=== PATIENT | female | born 1980 | race Caucasian/White ===

== ENCOUNTER 2017-11-10 15:32 | Outpatient (REF) | payer MEDICAID, SELFPAY ==
[2017-11-10 19:27] LABS: HCT 37.2 % (36.0-46.0); HGB 11.9 g/dL (12.0-15.5); Mean Corpuscular Hemoglobin 31.8 pg (27.0-33.0); Mean Corpuscular Volume 99.5 fL (80-95); Mean Platelet Volume 11.2 fL (8.0-11.0); Platelet Count 533 x1000/uL (130-400); RBC 3.74 m/cumm (4.00-5.20); RBC Distribution Width 20.2 % (11.7-14.6); White Blood Cell Count 10.77 k/cumm (4.4-10.8)
[2017-11-10 19:41] LABS: ALT 16 U/L (12-78); AST 20 U/L (15-37); Albumin 3.7 g/dL (3.4-5.0); Alkaline Phosphatase 108 U/L (46-116); BUN 12 mg/dL (7-18); Bilirubin, Total 0.2 mg/dL (0.2-1.0); C-Reactive Protein 0.36 mg/dL (0.0-0.3); CREATININE 0.56 mg/dL (0.55-1.02); Calcium 9.4 mg/dL (8.5-10.1); Chloride 103 mmol/L (98-107); Glucose 84 mg/dL (70-100); Magnesium 1.8 mg/dL (1.8-2.4); Potassium 4.8 mmol/L (3.5-5.1); Sodium 140 mmol/L (136-145); Total Protein 7.4 g/dL (6.4-8.2)
[2017-11-10 20:14] LABS: Iron 100 ug/dL (50-175); Total Iron Binding Capacity 256 ug/dL (250-450); Transferrin Sat 39 % (15-50)
[2017-11-10 20:41] LABS: Vitamin B12 768 pg/mL (193-986)
[2017-11-12 09:39] LABS: HBs Antibody, Quant 3.6 mIU/mL; Hepatitis B Surface Ab Negative
[2017-11-12 10:27] LABS: Cyclic Citrullinated Peptide <2.5 U/mL (<5.0)
[2017-11-12 10:55] LABS: Hepatitis B Surface Ag Negative (NEGAT); Hepatitis C Ab w Rflx HCV PCR Negative (NEGAT)
[2017-11-12 10:56] LABS: HIV-1/2 Ag & Ab Screen Negative (NEGAT)
[2017-11-12 13:52] LABS: Syphilis Serology (RPR) Negative (Negative)
== END 2017-11-10 15:52 ==
LOC: NCHCN 15:32
PROVIDERS: PCP Family Medicine; Visit Provider Family Medicine
DX: M12.849 Other specific arthropathies, not elsewhere classified, unspecified hand (principal); E46 Unspecified protein-calorie malnutrition; D64.9 Anemia, unspecified; E87.6 Hypokalemia; F11.20 Opioid dependence, uncomplicated; Z11.4 Encounter for screening for human immunodeficiency virus [HIV]; Z11.59 Encounter for screening for other viral diseases; Z11.3 Encounter for screening for infections with a predominantly sexual mode of transmission
CPT/HCPCS: 80053; 85027; 86200; 86706; 86803; 87340; 87389; 82607; 83540; 83550; 83735; 86140; 86592

== ENCOUNTER 2018-03-31 01:57 | Outpatient (CLI) | payer MEDICAID, SELFPAY | END 2018-03-31 02:17 | PROVIDERS: PCP Family Medicine; Visit Provider Family Medicine | DX: J45.909 Unspecified asthma, uncomplicated (principal) ==

== ENCOUNTER 2018-08-16 15:08 | Emergency (ER) | payer OTHER, SELFPAY ==
[2018-08-16] VITALS (36 sets, daily range): BP systolic 61–132; BP diastolic 20–68; PULSE 84–160; RESP 13–27; TEMP 38.1–38.5; O2SAT 89–98
--- NOTE | 2018-08-16 15:46 | W.ED.GENAD ---
Discharge Plan Disposition Patient Disposition: [facility] Condition: Stable Discharge Details Chief Complaint: Fever Clinical Impression: Pneumonia Primary Care Provider: Roosevelt Darnell ED Provider: Nayan Hawkins Home Meds and New Rx's Prescriptions: New doxycycline hyclate 100 mg tablet 100 mg PO BID Qty: 14 RF: 0 No Action sertraline 100 mg Tablet 200 mg PO DAILY RF: 0 hydroxyzine HCl 50 mg Tablet 50 mg PO BID RF: 0 bupropion HCl 75 mg Tablet 150 mg PO DAILY RF: 0 gabapentin 300 mg Capsule 300 mg PO BID RF: 0 ibuprofen 600 mg Tablet 600 mg PO BID RF: 0 buprenorphine HCl 2 mg Tablet, Sublingual 4 mg SUBLINGUAL DAILY RF: 0 buprenorphine HCl 8 mg Tablet, Sublingual 8 mg SUBLINGUAL DAILY RF: 0 Discharge Instructions Instructions: Pneumonia (ED) Additional Instructions: For your fever and body aches you may take 650 mg of acetaminophen or 600 mg of ibuprofen every 6 hours. Otherwise stay well-hydrated and take antibiotic along with your regular prescribed medications. Return immediately to the emergency department for any new or significant worsening of symptoms or if not improving over the next 24 to 48 hours. Referrals: Roosevelt Darnell [Primary Care Provider] - (As needed for reassessment or if not improving) Discharge Data Discharge Date/Time-TO BE ENTERED AT DEPARTURE: 08/16/18 18:52 Medical Decision Making <LAXMI Bush - Last Filed: 08/17/18 09:39> Patient is a 38 year old female, currently incarcerated, presenting today for evaluation of cough. States she first noted cold like symptoms one week ago with sore throat, congestion, cough. States that the ENT symptoms have been improving but cough has been getting worse. Is endorsing pain with cough and inspiration on the left side of her back. SOB with cough. Endorses fevers/chills. Endorses nausea, no vomting or diarrhea. No recent drug use, currently menstruating. patient report hx of asthma, necrotizing pneumonia, spontaneous pneumothorax, DVT. DVT was during hospitalization last year for pneumonia. Patient is not anticoagulated. On exam, patient appears flushed, fatigued. She is not in respiratory distress. Sounds course in MANJINDER, wheezing noted in RLL. Abdomen is benign. Calves are soft, nontender with no findings to suggest clot. VS concerning for temp of 38.5, patient has received Tylenol today, will augment with ibuprofen. O2 94% on RA, HR 107. Plan to hydrate. Will treat fever, obtain cxr, labs. Concerned primarily for pneumonia. Have also considered PE, sepsis, endocarditis. No anterior CP, no murmur, no recent drug usage. States last used IVD 2 years ago. At the end of my shift, care transitioned to Dago Hawkins NP with workup pending. <Nayan Hawkins NP - Last Filed: 08/16/18 21:11> Review of results show a leukocytosis, anion gap of 13.7, slightly low magnesium. Oral magnesium was given along with additional fluids. Review of radiological imaging and radiologist interpretation shows a hazy opacification in the upper lobe retrosternal region and mild hazy left hilar. These findings are concerning for focal infiltrate. Given patient symptoms of illness for greater than a week and starting to have worsening symptoms I do feel that this is pneumonia. Patient's lactate is within acceptable limits and she is otherwise stable not hypoxic. After patient's fever reduced she did state that she did feel little bit better and after 2 L of fluids she also states improvement. Patient was started on doxycycline twice daily for 1 week. Return precautions were discussed and report was given to correctional staff in regards to patient's condition. After discussion of diagnosis and plan of care patient has no further needs, questions, or concerns and states clear understanding to return to the emergency department for any worsening symptoms. Lab Data Lab results reviewed: Yes I reviewed the patient's lab results. HPI <LAXMI Bush - Last Filed: 08/17/18 09:39> General Mode of arrival: ambulatory (in police custody). Date/Time Provider Initiated Documentation: 08/16/18 15:11. Limitations to Documentation: no limitations. Information obtained by: patient and RN notes reviewed. History of Present Illness 38 year old F presents to the emergency department with the chief complaint of cough, described as moderate, with intensity rated at 7. Quality is described as aching, and is localized to the back. Patient reports no radiation. Patient started experiencing this day(s) (1) and it has been constant. Immobilization improves symptom(s), Other factors that worsen symptoms (coughing, inspiration) . Patient notes cough, fever/chills, headaches, loss of appetite, malaise, nausea/vomiting (nausea, no vomiting), shortness of breath and weakness (feels fatigued and lethargic); denies rash. Patient did receive the following treatments prior to arrival, other (tylenol at 1200) Related Data Home Medications Medication Instructions Recorded Confirmed buprenorphine HCl 4 mg SUBLINGUAL DAILY 08/16/18 08/16/18 buprenorphine HCl 8 mg SUBLINGUAL DAILY 08/16/18 08/16/18 bupropion HCl 150 mg PO DAILY 08/16/18 08/16/18 doxycycline hyclate 100 mg PO BID #14 tab 08/16/18 gabapentin 300 mg PO BID 08/16/18 08/16/18 hydroxyzine HCl 50 mg PO BID 08/16/18 08/16/18 ibuprofen 600 mg PO BID 08/16/18 08/16/18 sertraline 200 mg PO DAILY 08/16/18 08/16/18 Previous Rx's Medication Instructions Recorded doxycycline hyclate 100 mg PO BID #14 tab 08/16/18 Allergies Allergy/AdvReac Type Severity Reaction Status Date / Time No Known Allergies Allergy Unverified 08/16/18 15:18 General Stated Complaint: Fever AUGUSTINE: 3 Review of Systems <LAXMI Bush - Last Filed: 08/17/18 09:39> Constitutional Reports as per HPI, Reports chills, Reports fever(s), Denies headache(s), Reports lethargy and Reports poor appetite Eyes Reports as per HPI, Denies eye discharge and Denies irritation ENT Reports as per HPI and Denies headache(s) Cardiovascular Reports as per HPI, Denies chest pain, Denies leg edema, Denies lightheadedness, Denies palpitations, Reports dyspnea and Reports dyspnea on exertion Respiratory Reports as per HPI, Reports change in phlegm color (green), Reports chest congestion, Reports cough, Denies hemoptysis, Denies excessive phlegm production, Reports pain on inspiration, Reports pain with cough, Reports dyspnea, Reports dyspnea on exertion, Denies stridor and Denies wheezing Gastrointestinal Reports as per HPI, Denies abdominal pain, Denies change in bowel habits, Reports nausea and Denies vomiting Genitourinary Reports system reviewed and no additional complaints, except as docu (no change in urinary habits, currently menstruating) Integumentary/Breasts Reports as per HPI and Denies rash Neurologic Reports as per HPI and Denies headache(s) Endocrine Denies palpitations Allergic/Immunologic Denies wheezing PFSH <LAXMI Bush - Last Filed: 08/17/18 09:39> Social History Smoking/Tobacco Use Status: Current-Occasional Tobacco Type: cigarettes Alcohol Intake: never Substance use type: does not use Exam <LXAMI Bush Last Filed: 08/17/18 09:39> Const General: cooperative, healthy appearing, comfortable, no acute distress, well developed and well groomed Nutritional Appearance: average body habitus and well nourished Orientation: alert and awake HENNM Head: normal to inspection, normocephalic and atraumatic Ears: hearing grossly normal bilaterally, external ears normal and TM's normal bilaterally General nose exam: external nose normal and nares normal Face and sinus: normal facial exam, sinuses nontender and face symmetric Mouth: oral mucosae normal, lip normal, tongue normal, oropharynx normal and moist mucous membranes Teeth and gingiva: dentition normal Throat: posterior oropharynx normal, tonsils normal and uvula midline Eyes General: appearance normal, both eyes and all related structures Neck Neck: normal visual inspection, full ROM, no lymphadenopathy and no meningeal signs Resp Effort & Inspection: normal respiratory effort, able to speak in complete sentences and no respiratory distress Auscultation: clear to auscultation bilaterally, no rales, rhonchi left upper and wheezes expiratory wheezes and right lower Cardio Rate: regular rate Rhythm: regular rhythm Heart Sounds: S1 normal and S2 normal GI Inspection: normal to inspection Palpation: soft, no hepatosplenomegaly, not rigid and nontender Percussion: normal to percussion Auscultation: normal bowel sounds Skin General skin exam: no rashes or lesions noted Neuro General: alert and awake Cognition: normal cognition Speech: speech normal Gait: normal gait Extrem General: normal to inspection, no pedal edema, no calf tenderness and normal gait Psych Appearance: grossly normal and well kempt Mental Status: mental status grossly normal Speech and Movement: speech and movement normal Course <LAXMI Bush - Last Filed: 08/17/18 09:39> Vital Signs Temperature 38.5 C H 08/16/18 15:13 Pulse 107 H 08/16/18 15:13 Respiratory Rate 20 08/16/18 15:13 Pulse Oximetry 94 L 08/16/18 15:13 Temperature 38.5 C H 08/16/18 15:13 Temperature Source Temporal Artery Scan 08/16/18 15:13 Pulse 107 H 08/16/18 15:13 Respiratory Rate 20 08/16/18 15:13 Respiratory Effort Non-Labored 08/16/18 15:16 Blood Pressure Position Supine 08/16/18 15:13 Pulse Oximetry 94 L 08/16/18 15:13 Oxygen Delivery Method Room Air 08/16/18 15:13 Oxygen Flow Rate 0 08/16/18 15:13 Pain Level 7 08/16/18 15:13 Lab/Test Results Lab/Test Results: 08/16/18 15:43 Blood Blood Culture - Pending 08/16/18 15:43 Blood Blood Culture - Pending Sign Out <LAXMI Bush - Last Filed: 08/17/18 09:39> Sign Out Data: Sign Out Comment: Care transitioned to Dago Hawkins NP with imaging and labs pending. Last updated by Kimber Campoverde PA at 08/16/18 15:58
[2018-08-16 16:08] LABS: Lactate-non-spesis 1.3 mmol/l (0.6-1.4)
[2018-08-16] MEDS: Ibuprofen 600 MG TAB PO (16:10)
[2018-08-16] MEDS: Normal Saline 1,000 ML 1000 ML IV ×2 (16:11→17:30)
--- NOTE | 2018-08-16 16:13 | DI.RAD_ITS ---
SYMPTOM/DIAGNOSIS: RHONCHI LT SIDE, ? PNEUMONIA PA AND LATERAL CHEST: The cardiac and mediastinal contours have a normal appearance. There is increased density in the left hilar region as well as anteriorly on the lateral view. There is also question of some increased density at the left lung apex. No effusions are seen. No bony abnormalities are identified. IMPRESSION: Findings suspicious for left upper lobe infiltrates.
--- NOTE | 2018-08-16 16:20 | ED.GENADUL_ITS ---
Discharge Plan Disposition Patient Disposition: [facility] Condition: Stable Discharge Details Chief Complaint: Fever Clinical Impression: Pneumonia Primary Care Provider: Roosevelt Darnell ED Provider: Nayan Hawkins Home Meds and New Rx's Prescriptions: New doxycycline hyclate 100 mg tablet 100 mg PO BID Qty: 14 RF: 0 No Action sertraline 100 mg Tablet 200 mg PO DAILY RF: 0 hydroxyzine HCl 50 mg Tablet 50 mg PO BID RF: 0 bupropion HCl 75 mg Tablet 150 mg PO DAILY RF: 0 gabapentin 300 mg Capsule 300 mg PO BID RF: 0 ibuprofen 600 mg Tablet 600 mg PO BID RF: 0 buprenorphine HCl 2 mg Tablet, Sublingual 4 mg SUBLINGUAL DAILY RF: 0 buprenorphine HCl 8 mg Tablet, Sublingual 8 mg SUBLINGUAL DAILY RF: 0 Discharge Instructions Instructions: Pneumonia (ED) Additional Instructions: For your fever and body aches you may take 650 mg of acetaminophen or 600 mg of ibuprofen every 6 hours. Otherwise stay well-hydrated and take antibiotic along with your regular prescribed medications. Return immediately to the emergency department for any new or significant worsening of symptoms or if not improving over the next 24 to 48 hours. Referrals: Roosevelt Darnell [Primary Care Provider] - (As needed for reassessment or if not improving) Discharge Data Discharge Date/Time-TO BE ENTERED AT DEPARTURE: 08/16/18 18:52 Medical Decision Making <LAXMI Bush - Last Filed: 08/17/18 09:39> Patient is a 38 year old female, currently incarcerated, presenting today for evaluation of cough. States she first noted cold like symptoms one week ago with sore throat, congestion, cough. States that the ENT symptoms have been improving but cough has been getting worse. Is endorsing pain with cough and inspiration on the left side of her back. SOB with cough. Endorses fevers/chills. Endorses nausea, no vomting or diarrhea. No recent drug use, currently menstruating. patient report hx of asthma, necrotizing pneumonia, spontaneous pneumothorax, DVT. DVT was during hospitalization last year for pneumonia. Patient is not anticoagulated. On exam, patient appears flushed, fatigued. She is not in respiratory distress. Sounds course in MANJINDER, wheezing noted in RLL. Abdomen is benign. Calves are soft, nontender with no findings to suggest clot. VS concerning for temp of 38.5, patient has received Tylenol today, will augment with ibuprofen. O2 94% on RA, HR 107. Plan to hydrate. Will treat fever, obtain cxr, labs. Concerned primarily for pneumonia. Have also considered PE, sepsis, endocarditis. No anterior CP, no murmur, no recent drug usage. States last used IVD 2 years ago. At the end of my shift, care transitioned to Dago Hawkins NP with workup pending. <Nayan Hawkins NP - Last Filed: 08/16/18 21:11> Review of results show a leukocytosis, anion gap of 13.7, slightly low magnesium. Oral magnesium was given along with additional fluids. Review of radiological imaging and radiologist interpretation shows a hazy opacification in the upper lobe retrosternal region and mild hazy left hilar. These findings are concerning for focal infiltrate. Given patient symptoms of illness for greater than a week and starting to have worsening symptoms I do feel that this is pneumonia. Patient's lactate is within acceptable limits and she is otherwise stable not hypoxic. After patient's fever reduced she did state that she did feel little bit better and after 2 L of fluids she also states improvement. Patient was started on doxycycline twice daily for 1 week. Return precautions were discussed and report was given to correctional staff in regards to patient's condition. After discussion of diagnosis and plan of care patient has no further needs, questions, or concerns and states clear understa nding to return to the emergency department for any worsening symptoms. Lab Data Lab results reviewed: Yes I reviewed the patient's lab results. HPI <LAXMI Bush - Last Filed: 08/17/18 09:39> General Mode of arrival: ambulatory (in police custody) . Date/Time Provider Initiated Documentation: 08/16/18 15:11 . Limitations to Documentation: no limitations . Information obtained by: patient and RN notes reviewed . History of Present Illness 38 year old F presents to the emergency department with the chief complaint of cough, described as moderate, with intensity rated at 7. Quality is described as aching, and is localized to the back. Patient reports no radiation. Patient started experiencing this day(s) (1) and it has been constant. Immobilization improves symptom(s), Other factors that worsen symptoms (coughing, inspiration) . Patient notes cough, fever/chills, headaches, loss of appetite, malaise, nausea/vomiting (nausea, no vomiting), shortness of breath and weakness (feels fatigued and lethargic); denies rash. Patient did receive the following treatments prior to arrival, other (tylenol at 1200) Related Data Home Medications Medication Instructions Recorded Confirmed buprenorphine HCl 4 mg SUBLINGUAL DAILY 08/16/18 08/16/18 buprenorphine HCl 8 mg SUBLINGUAL DAILY 08/16/18 08/16/18 bupropion HCl 150 mg PO DAILY 08/16/18 08/16/18 doxycycline hyclate 100 mg PO BID #14 tab 08/16/18 gabapentin 300 mg PO BID 08/16/18 08/16/18 hydroxyzine HCl 50 mg PO BID 08/16/18 08/16/18 ibuprofen 600 mg PO BID 08/16/18 08/16/18 sertraline 200 mg PO DAILY 08/16/18 08/16/18 Previous Rx's Medication Instructions Recorded doxycycline hyclate 100 mg PO BID #14 tab 08/16/18 Allergies Allergy/AdvReac Type Severity Reaction Status Date / Time No Known Allergies Allergy Unverified 08/16/18 15:18 General Stated Complaint: Fever AUGUSTINE: 3 Review of Systems <LAXMI Bush - Last Filed: 08/17/18 09:39> Constitutional Reports as per HPI, Reports chills, Reports fever(s), Denies headache(s), Reports lethargy and Reports poor appetite Eyes Reports as per HPI, Denies eye discharge and Denies irritation ENT Reports as per HPI and Denies headache(s) Cardiovascular Reports as per HPI, Denies chest pain, Denies leg edema, Denies lightheadedness, Denies palpitations, Reports dyspnea and Reports dyspnea on exertion Respiratory Reports as per HPI, Reports change in phlegm color (green), Reports chest congestion, Reports cough, Denies hemoptysis, Denies excessive phlegm production, Reports pain on inspiration, Reports pain with cough, Reports dyspnea, Reports dyspnea on exertion, Denies stridor and Denies wheezing Gastrointestinal Reports as per HPI, Denies abdominal pain, Denies change in bowel habits, Reports nausea and Denies vomiting Genitourinary Reports system reviewed and no additional complaints, except as docu (no change in urinary habits, currently menstruating) Integumentary/Breasts Reports as per HPI and Denies rash Neurologic Reports as per HPI and Denies headache(s) Endocrine Denies palpitations Allergic/Immunologic Denies wheezing PFSH <LAXMI Bush - Last Filed: 08/17/18 09:39> Social History Smoking/Tobacco Use Status: Current-Occasional Tobacco Type: cigarettes Alcohol Intake: never Substance use type: does not use Exam <LAXMI Bush Last Filed: 08/17/18 09:39> Const General: cooperative, healthy appearing, comfortable, no acute distress, well developed and well groomed Nutritional Appearance: average body habitus and well nourished Orientation: alert and awake HENWV Head: normal to inspection, normocephalic and atraumatic Ears: hearing grossly normal bilaterally, external ears normal and TM's normal bilaterally General nose exam: external nose normal and nares normal Face and sinus: normal facial exam, sinuses nontender and face symmetric Mouth: oral mucosae normal, lip normal, tongue normal, oropharynx normal and moist mucous membranes Teeth and gingiva: dentition normal Throat: posterior oropharynx normal, tonsils normal and uvula midline Eyes General: appearance normal, both eyes and all related structures Neck Neck: normal visual inspection, full ROM, no lymphadenopathy and no meningeal s igns Resp Effort & Inspection: normal respiratory effort, able to speak in complete sentences and no respiratory distress Auscultation: clear to auscultation bilaterally, no rales, rhonchi left upper and wheezes expiratory wheezes and right lower Cardio Rate: regular rate Rhythm: regular rhythm Heart Sounds: S1 normal and S2 normal GI Inspection: normal to inspection Palpation: soft, no hepatosplenomegaly, not rigid and nontender Percussion: normal to percussion Auscultation: normal bowel sounds Skin General skin exam: no rashes or lesions noted Neuro General: alert and awake Cognition: normal cognition Speech: speech normal Gait: normal gait Extrem General: normal to inspection, no pedal edema, no calf tenderness and normal gait Psych Appearance: grossly normal and well kempt Mental Status: mental status grossly normal Speech and Movement: speech and movement normal Course <LAXMI Bush - Last Filed: 08/17/18 09:39> Vital Signs Temperature 38.5 C H 08/16/18 15:13 Pulse 107 H 08/16/18 15:13 Respiratory Rate 20 08/16/18 15:13 Pulse Oximetry 94 L 08/16/18 15:13 Temperature 38.5 C H 08/16/18 15:13 Temperature Source Temporal Artery Scan 08/16/18 15:13 Pulse 107 H 08/16/18 15:13 Respiratory Rate 20 08/16/18 15:13 Respiratory Effort Non-Labored 08/16/18 15:16 Blood Pressure Position Supine 08/16/18 15:13 Pulse Oximetry 94 L 08/16/18 15:13 Oxygen Delivery Method Room Air 08/16/18 15:13 Oxygen Flow Rate 0 08/16/18 15:13 Pain Level 7 08/16/18 15:13 Lab/Test Results Lab/Test Results: 08/16/18 15:43 Blood Blood Culture - Pending 08/16/18 15:43 Blood Blood Culture - Pending Sign Out <LAXMI Bush - Last Filed: 08/17/18 09:39> Sign Out Data: Sign Out Comment: Care transitioned to Dago Hawkins NP with imaging and labs pending. Last updated by Kimber Campoverde PA at 08/16/18 15:58
--- NOTE | 2018-08-16 16:23 | DI.VRAD_ITS ---
EXAM: XR Chest, 2 Views EXAM DATE/TIME: 08/16/2018 3:45 PM CLINICAL HISTORY: 38 years old, female; Signs and symptoms; Other: ? Pneumonia, rhonchi left side TECHNIQUE: Imaging protocol: XR of the chest, 2 views. COMPARISON: No relevant prior studies available. FINDINGS: Lungs: Other lateral view, there is apparent hazy opacification in the upper lobe retrosternal region. On the frontal view, there is mild haziness to the left hilar region. Pleural space: No pleural effusion. No pneumothorax. Heart/Mediastinum: No cardiomegaly. Bones/joints: Unremarkable. IMPRESSION: Other lateral view, there is apparent hazy opacification in the upper lobe retrosternal region. On the frontal view, there is mild haziness to the left hilar region. Given these findings, cannot exclude focal infiltrate. Dictated and Authenticated by: Thai Montanez MD. Ordering:MARIA TERESA Quiroga MD
[2018-08-16 16:34] LABS: Abs Immature Grans 0.09 k/cumm (0.0-0.09); Basophils % 0.3; Eosinophils % 0.3; HGB 13.2 g/dL (12.0-15.5); Immature Grans % 0.4; Lymphocytes % 9.3; Mean Corpuscular Hemoglobin 31.6 pg (27.0-33.0); Mean Corpuscular Volume 95.7 fL (80-95); Mean Platelet Volume 10.2 fL (8.0-11.0); Monocytes % 12.6; Neutrophils % 77.1; RBC 4.18 m/cumm (4.00-5.20); RBC Distribution Width 16.6 % (11.7-14.6)
[2018-08-16 16:38] LABS: Absolute Basophil Count 0.07 k/cumm (0.0-0.2); Absolute Eosinophil Count 0.07 k/cumm (0.0-0.7); Absolute Lymphocyte Count 2.21 k/cumm (1.2-3.4); Absolute Neutrophil Count 18.35 k/cumm (1.2-6.7)
[2018-08-16 16:42] LABS: ALT 10 U/L (12-78); AST 11 U/L (15-37); Albumin 3.1 g/dL (3.4-5.0); Alkaline Phosphatase 131 U/L (46-116); Anion Gap 13.7 mmol/L (3-11); BUN 8 mg/dL (7-18); Bilirubin, Total 0.3 mg/dL (0.2-1.0); CO2 24.3 mmol/L (21.0-32.0); CREATININE 0.66 mg/dL (0.55-1.02); Calcium 8.7 mg/dL (8.5-10.1); Chloride 98 mmol/L (98-107); Glucose 105 mg/dL (70-100); Magnesium 1.5 mg/dL (1.8-2.4); Potassium 3.5 mmol/L (3.5-5.1); Sodium 136 mmol/L (136-145)
[2018-08-16 16:57] LABS: Platelet Count 684 x1000/uL (130-400)
[2018-08-16 16:58] LABS: Diff Comment Agrees w/ Instrument; RBC Morphology Normal
[2018-08-16 16:59] LABS: Troponin I < 0.02 ng/mL (0.00-0.06)
[2018-08-16] MEDS: DOXYCYCLINE 100 MG in Normal Saline 100 ML IVPB (17:29)
[2018-08-16] MEDS: Magnesium Oxide 400 MG TAB 800 MG PO (17:30)
[2018-08-16 17:31] LABS: Bilirubin Negative (Negative); Blood Trace-lysed (Negative); Clarity Clear; Glucose Negative (Negative); Ketones Negative (Negative); Leukocyte Esterase Negative (Negative); Nitrite Negative (Negative); Specific Gravity <= 1.005 (1.005-1.025); Urobilinogen 0.2 EU/dL (Up TO 0.2); pH 6.5 (5-8)
[2018-08-16 17:46] LABS: Bacteria Negative HPF (Negative); C & S Indicated? No; Casts Negative LPF (Negative); Crystals Negative HPF (Negative); Epithelial Cells Few HPF (Negative); Mucus Negative (Negative); RBC 0-2 (0-2); WBC 0-2 HPF (0-5)
== END 2018-08-16 18:52 | disposition home or self-care (01) ==
PROVIDERS: Physician Assistant; Emergency Provider Nurse Practitioner Family; PCP Family Medicine
DX: J18.9 Pneumonia, unspecified organism (principal); D72.9 Disorder of white blood cells, unspecified; F17.210 Nicotine dependence, cigarettes, uncomplicated
CPT/HCPCS: 36415; 80053; 81025; 87040; 96361; 96365; 99285; 71046; 81003; 81015; 83605; 83735; 84484; 85025; 99284